=== PATIENT | male | born 1935 | race Caucasian/White ===

== ENCOUNTER → 2018-06-10 10:13 | Outpatient (CLI) | payer MEDICARE, OTHER, SELFPAY ==
[2018-06-10 12:59] LABS: ALB/GLOB Ratio 1.2 RATIO (0.9-2.4); AST(SGOT) 18 U/L (15-37); Alanine Aminotransfer ALT/SGPT 31 U/L (16-61); Albumin, Serum 3.8 g/dL (3.2-5.0); Alkaline Phosphatase 65 U/L (45-117); Anion Gap 7 (5-15); BUN 24 mg/dL (7-18); BUN/Creat Ratio 16.2 RATIO (10-20); Calcium,Total 8.8 mg/dL (8.5-10.1); Chloride 107 mmol/L (98-107); Cholesterol 145 mg/dL (200); Creatinine, Serum 1.48 mg/dL (0.70-1.30); EST Glomerular Filtration Rate 48 mL/min (>60); Est Glom Filt Rate - Afr Amer 58 mL/min (>60); Globulin 3.1 g/dL (2.2-4.2); Glucose 82 mg/dL (74-106); High Density Lipoprotein 44 mg/dL; Potassium 4.3 mmol/L (3.5-5.1); Protein, Total 6.9 g/dL (6.4-8.2); Sodium Level 142 mmol/L (136-145); Triglycerides 228 mg/dL; Very Low Density Lipoprotein 46 mg/dL (5-40)
== END ==
PROVIDERS: Visit Provider Physician Assistant Medical
DX: I25.10 Atherosclerotic heart disease of native coronary artery without angina pectoris (principal); I10 Essential (primary) hypertension; E78.5 Hyperlipidemia, unspecified; Z79.899 Other long term (current) drug therapy
CPT/HCPCS: 80053; 80061

== ENCOUNTER → 2019-06-17 | Outpatient (CLI) | payer MEDICARE, OTHER, SELFPAY ==
[2019-06-17 13:25] VITALS: BMI 29.1
[2019-06-17 16:24] LABS: Absolute Lymphocyte Count 1.06 X10^3/uL (0.83-4.51); Absolute Neutrophil Count 4.6 X10^3/uL (2.0-7.7); Basophil# 0.04 X10^3/uL; Basophil% 0.6 % (0-1); Eosinophil# 0.12 X10^3/uL; Eosinophils% 1.8 % (0-5); Hematocrit 44.9 % (40-54); Hemoglobin 15.7 g/dL (13.0-16.5); Lymphocyte # 1.06 X10^3/ul (4.0); Lymphocyte % 16.1 % (19-41); Mean Corpuscular Hgb 32.4 pg (27.0-32.0); Mean Corpuscular Volume 92.8 fL (80-94); Monocyte# 0.72 X10^3/uL; Monocyte% 10.9 % (0-10); NRBC Flagged by Analyzer 0 % (0-5); Neutrophil # 4.62 X10^3/uL (2.7-7.7); Neutrophil % 70.3 % (47-70); Platelet Count 154 K/mm3 (150-450); RBC Distribution Width CV 12.5 % (11.6-14.6); RBC Distribution Width SD 42.5 fl (35.1-43.9); Red Blood Count 4.84 M/mm3 (4.6-6.2); White Blood Count 6.6 K/mm3 (4.4-11.0)
== END | disposition home or self-care (01) ==
LOC: LAB 14:26
PROVIDERS: Family Provider Family Medicine; PCP Family Medicine; Referring Provider Internal Medicine Cardiovascular Disease; Visit Provider Internal Medicine Cardiovascular Disease
DX: Z95.5 Presence of coronary angioplasty implant and graft (principal)
CPT/HCPCS: 36415; 85025

== ENCOUNTER → 2020-06-21 | Outpatient (CLI) | payer MEDICARE, OTHER, SELFPAY ==
[2020-06-21 11:08] VITALS: BMI 28.5
[2020-06-21 12:35] LABS: Absolute Lymphocyte Count 0.85 X10^3/uL (0.83-4.51); Absolute Neutrophil Count 4.1 X10^3/uL (2.0-7.7); Basophil# 0.03 X10^3/uL; Basophil% 0.5 % (0-1); Eosinophil# 0.11 X10^3/uL; Eosinophils% 1.9 % (0-5); Hematocrit 45.3 % (40-54); Hemoglobin 15.9 g/dL (13.0-16.5); Lymphocyte # 0.85 X10^3/ul (4.0); Lymphocyte % 14.8 % (19-41); Mean Corp Hgb Conc 35.1 g/dL (32-36); Mean Corpuscular Hgb 32.3 pg (27.0-32.0); Mean Corpuscular Volume 92.1 fL (80-94); Mean Platelet Vol. 10.4 fl (6.2-12.0); Monocyte# 0.67 X10^3/uL; Monocyte% 11.6 % (0-10); NRBC Flagged by Analyzer 0 % (0-5); Neutrophil # 4.08 X10^3/uL (2.7-7.7); Neutrophil % 70.9 % (47-70); Platelet Count 142 K/mm3 (150-450); RBC Distribution Width CV 12.4 % (11.6-14.6); RBC Distribution Width SD 41.7 fl (35.1-43.9); Red Blood Count 4.92 M/mm3 (4.6-6.2); White Blood Count 5.8 K/mm3 (4.4-11.0)
[2020-06-21 13:20] LABS: Anion Gap 3 (5-15); BUN 21 mg/dL (7-18); BUN/Creat Ratio 17.4 RATIO (10-20); Calcium,Total 8.9 mg/dL (8.5-10.1); Chloride 110 mmol/L (98-107); Creatinine, Serum 1.21 mg/dL (0.70-1.30); EST Glomerular Filtration Rate 61 mL/min (>60); Est Glom Filt Rate - Afr Amer 73 mL/min (>60); Glucose 83 mg/dL (74-106); Magnesium 2.3 mg/dL (1.6-2.6); Potassium 4.2 mmol/L (3.5-5.1); Sodium Level 143 mmol/L (136-145); T4 Total, Thyroxin 7.1 ug/dL (4.5-12.1); Thyroid Stim Hormone (TSH) 4.36 uIU/mL (0.358-3.74)
== END | disposition home or self-care (01) ==
LOC: LAB 11:45
PROVIDERS: PCP Family Medicine; Referring Provider Internal Medicine Cardiovascular Disease; Visit Provider Internal Medicine Cardiovascular Disease
DX: I25.10 Atherosclerotic heart disease of native coronary artery without angina pectoris (principal); R53.1 Weakness
CPT/HCPCS: 36415; 80048; 83735; 84436; 84443; 85025

== ENCOUNTER → 2020-07-05 | Outpatient (CLI) | payer MEDICARE, OTHER, SELFPAY ==
[2020-06-21 11:08] VITALS: BMI 28.5
--- NOTE | 2020-07-05 07:04 | ECHOCS_ITS ---
Reason For Study: CAD/ASHD Procedure This was a 2D Doppler, Color Flow transthoracic echocardiogram. The study was technically difficult. Contrast injection was performed. Exam performed in department. Left Ventricle Normal LV size. Sigmoid septum. Left ventricular systolic function is normal. The estimated ejection fraction is 65 %. Stage 1 diastolic dysfunction. No regional wall motion abnormalities noted. Right Ventricle Normal RV size. Normal systolic function. Atria Normal left atrium. Normal right atrium. Mitral Valve Mild diffuse mitral valve thickening. Mild (1+) eccentric mitral valve insufficiency. Tricuspid Valve Normal tricuspid valve. Mild tricuspid valve insufficiency. Aortic Valve Trisinus/trileaflet aortic valve. Mild diffuse aortic valve thickening. Mild (1+) eccentric aortic valve insufficiency. Pulmonic Valve Normal pulmonic valve. Great Vessels Normal aortic root. The pulmonary artery is normal size. Normal inferior vena cava. Pericardium/Pleural No pericardial effusion. Medication 22 gauge I.V. with prn adaptor inserted into right arm. Diluted definity 2ml given slow IV push to enhance endocardial definition. MMode/2D Measurements & Calculations LVIDd: 4.8 cm IVSd: 1.5 cm Ao root diam: 3.3 cm LVIDs: 3.3 cm LVPWd: 1.7 cm LA dimension: 3.1 cm FS: 30.8 % LAV(MOD-bp): 44.4 ml LA A4 area: 16.9 cm2 RA A4 area: 14.5 cm2 LAV(MOD-bp) Indexed: 21.5 ml/m2 LAV(MOD-sp2): 47.7 ml LAV(MOD-sp4): 42.2 ml Time Measurements MV dec time: 0.15 sec Doppler Measurements & Calculations MV E max roger: 49.0 cm/sec Lat Peak E' Roger: 4.5 cm/sec Ao V2 max: 98.7 cm/sec MV A max roger: 94.9 cm/sec E/E' lat: 10.9 Ao max P.9 mmHg MV E/A: 0.52 AI max roger: 410.1 cm/sec LV V1 max: 76.5 cm/sec PA V2 max: 71.3 cm/sec AI max P.4 mmHg LV V1 max P.3 mmHg AI dec slope: 170.5 cm/sec2 AI P1/2t: 704.5 msec PI end-d roger: 109.8 cm/sec Interpretation Summary Normal LV size. Sigmoid septum. Left ventricular systolic function is normal. The estimated ejection fraction is 65 %. Stage 1 diastolic dysfunction. Mild (1+) eccentric aortic valve insufficiency. Contrast injection was performed. Ordering Physician: Daljit Sosa Referring Physician: Franky Herrmann Performed By: Marco Smyth RCS
--- NOTE | 2020-07-05 13:03 | STRESSREP ---
Stress Test Report Exercise myocardial perfusion stress test. 84-year-old man with a history of previous inferior wall myocardial infarction. Stress protocol: Resting EKG demonstrates normal sinus rhythm with a rate of 63 bpm right bundle branch block is noted resting blood pressure 142/82 mmHg. The patient exercised according to regular George protocol for a total duration of 4 minutes and 12 seconds. The maximum heart rate attained was 130 bpm which was 95% of max impacted heart rate and maximum workload was 6 metabolic equivalents. At rest there were no ST or T wave changes noted suggest ischemia at peak exercise upsloping ST changes were noted. No meet the criteria for ischemia. No clinical angina was noted the test was terminated due to significant fatigue and dyspnea. Resting blood pressure was 142/82 with a peak blood pressure 190/96 mmHg. Myocardial perfusion protocol. 11.5 mCi of technetium 99m sestamibi was injected at rest. Patient exercised according to regular George protocol for 4 minutes and 12 seconds at peak exercise 36.0 mCi of technetium 99m sestamibi was injected stress images were obtained stress and rest images were reconstructed and compared in the short axis vertical long horizontal long axis. Gated images were also obtained Perfusion SPECT analysis: Review of the stress images demonstrate normal perfusion noted in the anterior wall lateral wall and septum. The mid to basal inferior wall has a medium size defect noted. The resting images demonstrate improvement in this area except for the basal inferior wall suggesting moderate ischemia noted in the mid inferior wall and a previous basal inferior infarct. Gated SPECT analysis: The gated ejection fraction is 69%. Conclusion: Abnormal exercise myocardial perfusion stress test with evidence of mid inferior ischemia. Basal inferior infarct noted. Preserved ejection fraction.
== END | disposition home or self-care (01) ==
LOC: CVS 07:04
PROVIDERS: PCP Family Medicine; Referring Provider Internal Medicine Cardiovascular Disease; Visit Provider Internal Medicine Cardiovascular Disease
DX: I25.10 Atherosclerotic heart disease of native coronary artery without angina pectoris (principal); Z95.5 Presence of coronary angioplasty implant and graft
CPT/HCPCS: 78452; 93017; 93306; A9500; Q9957; A4216; C8929

== ENCOUNTER 2020-07-21 06:43 | Day surgery (SDC) | payer MEDICARE, OTHER, SELFPAY ==
[2020-06-21 11:08] VITALS: BMI 28.5
--- NOTE | 2020-07-12 09:26 | RAD_ITS ---
STUDY: X-RAY CHEST REASON FOR EXAM: Male, 84 years old. CAD, ABN STRESS. NO CHEST COMPLAINTS TECHNIQUE: PA and lateral views of the chest. COMPARISON: None. FINDINGS: The lungs are clear and expanded. There is no demonstrated pleural abnormality. Normal size heart. Normal mediastinum and marco. Normal visualized pulmonary arteries. There is atherosclerotic calcification of the aortic arch with tortuosity. There are diffuse degenerative changes of the visualized thoracic spine. Mild dextroscoliosis. There is degenerative osteoarthritis of the bilateral shoulders. Moderate sized hiatal hernia. RAD/Chest PA and Lateral IMPRESSION: The lungs are clear. Hiatal hernia. Electronically Signed: Kyree Silver, at 12:26 EDT , Service support ,
[2020-07-20 07:46] VITALS: BMI 28.5
[2020-07-21] VITALS (19 sets, daily range): BP systolic 140–205; BP diastolic 58–102; PULSE 60–78; RESP 16–18; TEMP 36.2–37; O2SAT 94–98; BMI 29.5
--- NOTE | 2020-07-21 09:00 | HP_ITS ---
[facility] History of Present Illness Details: CASSIDY BAKER, is a 84 M who presents to the office today for a cardiovascular follow-up. He has a history of coronary artery disease with myocardial infarction in 2004 of his RCA, for which she underwent angioplasty and drug-eluting stent to the proximal right coronary artery and PCI of the mid left anterior descending artery and proximal left anterior descending artery with 2 drug-eluting stents placed. He also has a history of hypertension. He presents today with his daughters and his major complaint is that he is fatigued as well as has had increased sweating. He was taken to [place] and he experienced the same with minimal activity. They want to know whether there is a cardiac explanation to this. From a cardiac standpoint, patient is doing well. He does not have any chest discomfort/heaviness/tightness. His exercise tolerance is stable for his age. He does not have any worsening symptoms of shortness of breath. He denies any PND. He does not have any orthopnea. He does not have any symptoms of congestive heart failure. He does not have any palpitations that he is aware of. He does not have any lightheadedness or dizziness. He does not have any near-syncope or syncope. He does not have any lower extremity edema. He does not have any symptoms of claudication. His physical exam demonstrates clear lung barbour regular rate and rhythm and no pedal edema. Intake Vital Signs 06/21/20 Height 5 ft 10 in 06/21/20 Weight: 199 lb 06/21/20 BMI 28.5 06/21/20 BP 164/91 H 06/21/20 Respiration 16 06/21/20 Pulse 62 06/21/20 Pulse Oximetry (%) 96 Intake Visit Reasons: 1 Y FU, increased fatigue, sweating Allergies donepezil [From Aricept] Adverse Reaction (Verified 06/21/20 11:08) HTN nitroglycerin Adverse Reaction (Verified 06/21/20 11:12) Unknown Medications ibuprofen 200 mg capsule 200 mg PO TID-QID PRN 06/10/18 [History Confirmed 06/21/20] atorvastatin 10 mg tablet 10 mg PO QDAY #90 tab 12/15/18 [Rx Confirmed 06/21/20] metoprolol succinate 50 mg tablet,extended release 24 hr 50 mg PO QDAY #90 tab 09/04/19 [Rx Confirmed 06/21/20] omeprazole 20 mg capsule,delayed release 20 mg PO QDAY #90 cap 01/29/20 [Rx Confirmed 06/21/20] aspirin 81 mg tablet,delayed release 81 mg PO .M/W/F tab 06/21/20 [History Confirmed 06/21/20] betamethasone dipropionate 0.05 % topical cream 1 applic TOPICAL BID g 06/21/20 [History Confirmed 06/21/20] memantine 10 mg tablet 10 mg PO QAM tab 06/21/20 [History Confirmed 06/21/20] multivitamin 1 tab PO DAILY 06/21/20 [History Confirmed 06/21/20] venlafaxine 37.5 mg capsule,extended release 24 hr 37.5 mg PO DAILY cap 06/21/20 [History Confirmed 06/21/20] Ejection fraction %: 50 to 54 PFSH Medical History Atherosclerosis of coronary artery of [place] heart without angina pectoris (Chronic) Old inferior wall myocardial infarction (Chronic) Essential (primary) hypertension (Chronic) Hyperlipidemia (Chronic) Chronic kidney disease (Chronic) Hypothyroidism (Chronic) Obesity (Chronic) Surgical History History of coronary artery stent placement (Resolved 05/19/06) H/O hernia repair (Resolved) History of tonsillectomy (Resolved) Family History Sister , Age 49 Diabetes Social History (Updated 06/21/20 @ 11:[address] Daljit Sosa MD) Smoking Status: Former smoker alcohol intake: never caffeine: Yes Type: coffee Number of servings: 1 ROS Const Const: Positive for fatigue (episodes of fatigue and increase sweating for the past 2 weeks), weakness and excessive sweating; negative for headache(s), frequent falls or difficulty sleeping Eyes Eyes: Negative for loss of peripheral vision, transient loss of vision, blurry vision, double vision or tunnel vision ENT ENT: Negative for headache(s), dizziness, Nosebleed/epistaxis or balance problems Cardio Chest Pain: No Palpitations: No Edema: None Muscle aches with walking: None Resp Respiratory: Negative for SOB with activity, SOB at rest, SOB orthopnea\SOB lying down, Cough or paroxysmal nocturnal dyspnea GI GI: Negative nausea, vomiting, heartburn or black,tarry stools : Negative for hematuria Musc Musc: Negative for muscle aches/ myalgia, muscle weakness, joint pain or balance problems Skin Skin: Negative non-healing lesions, rash or unusual bruising Neuro Neuro: Positive for weakness; negative for dizziness, lightheadedness, near syncope, syncope, orthostatic symptoms, frequent falls, headache(s), blurry vision, double vision or lack of coordination [place] Hematologic/Lymphatic: Negative for easy bleeding or easy bruising Endo Endo: Positive for fatigue (episodes of fatigue and increase sweating for the past 2 weeks) and excessive sweating; negative for increased thirst/drinking Psych Psych: Negative for anxiety or depression Allergy Allergy/Immunology: Negative for hives, Negative for rash Cardiology Exam Const Appearance: cooperative, healthy appearing, no acute distress, well developed and well groomed Nutritional Appearance: average body habitus and well nourished Orientation: alert, awake and oriented x3 Head Head: normal to inspection, normocephalic and atraumatic Ears: hearing grossly normal bilaterally and external ears normal Nose: external nose normal, nares normal, nasal mucous membranes and turbinates normal, septum normal, no nasal discharge Face and Sinus: face symmetric Mouth: oral mucosae normal, tongue normal, oropharynx normal and moist mucous membranes Teeth and gingiva: dentition normal Throat: posterior oropharynx normal, tonsils normal and uvula midline Eyes General: appearance normal, both eyes and all related structures Eyelids: eyelids normal Conjunctivae: conjunctivae normal Pupils: PERRL, normal by confrontation and accommodation normal EOM: EOM intact bilaterally Neck Neck: normal visual inspection, trachea midline and no JVD JVD: +5 Carotids: normal carotid upstroke and bounding pulses Chest Chest inspection: normal inspection of the chest, symmetric chest movement and normal respiratory effort Auscultation: Bilateral: Clear to Auscultation Cardio Palpation: normal PMI Rate: regular rate Rhythm: regular rhythm Heart sounds: S1 normal, S2 normal and normal, physiologic split S2; negative rub, gallop or murmur GI GI: normal to inspection, soft, no hepatosplenomegaly and bowel sounds present Neuro General: alert, awake, oriented x3, gait normal, moves all extremities and no focal sensory deficit Skin Skin: no rashes or lesions noted Extremities Pulses: Normal: Right Femoral Pulse, Left Femoral Pulse, Right Dorsalis Pedis Pulse, Left Dorsalis Pedis Pulse, Right Posterior Tibial Pulse, Left Posterior Tibial Pulse, Right Radial Pulse, Left Radial Pulse Lower Extremity Edema: None: Bilateral Musculoskel Musculoskeletal: No joint tenderness Psych Psychological: normal affect Assessment & Plan 1. History of coronary artery stent placement Z95.5 [id number] RCA w/ Taxus Stent 07/10/2005; PCI-BUSTER-Mid LAD w/ 2.5 x 8 mm Taxus Stent and immediately upstream w/ a 2.5 x 16 mm Taxus 05/19/2006 Plan He does have a history of coronary artery disease status post previous drug- eluting stent angioplasty of the right coronary artery in 2004 and drug-eluting stent of the left anterior descending artery in 2005. His last stress test was in 2013 with his current symptoms which cannot be fit into any particular category I like to obtain a myocardial perfusion stress test on him and depending on the findings further recommendations will be made. Orders Orders: Nuclear Stress Test - Treadmil Today 2. Essential (primary) hypertension I10 Plan He does have a history of hypertension which is not well-controlled on the current medical therapy, and I have asked him to continue to monitor his blood pressures we will see his response to exercise and depending on those tests further recommendations will be made. 3. Pure hypercholesterolemia E78.00 Plan He does have a history of hyperlipidemia and will continue to follow the above. Plan Detail Other Orders Orders: Basic Metabolic Profile (BMP) Today I25.10 Magnesium Today R53.1 T4 Total, Thyroxin Today R53.1 Thyroid Stim Hormone (TSH) Today R53.1 Echo Complete Today I25.10 CBC W/Diff, Automated Today R53.1 Follow Up 2 Months ([facility]) Coding Level of Care Code Off vis,est,level 4 Diagnoses History of coronary artery stent placement Z95.5 Essential (primary) hypertension I10 Pure hypercholesterolemia E78.00 ??Hyperlipidemia type: pure hypercholesterolemia Coding Level of Care Code Off vis,est,level 4 Diagnoses History of coronary artery stent placement Z95.5 Essential (primary) hypertension I10 Pure hypercholesterolemia E78.00 ??Hyperlipidemia type: pure hypercholesterolemia Supplemental Info Supplemental Information Labs LDL Cholesterol 55 mg/dL (0-130) 06/10/18 HDL Cholesterol 44 mg/dL (40-) 06/10/18 Triglycerides 228 mg/dL (-199) H 06/10/18 VLDL Cholesterol 46 mg/dL (5-40) H 06/10/18 Diagnostics Stress Test Nuclear Medicine 10/20/14
--- NOTE | 2020-07-21 09:12 | CL.D_ITS ---
Patient Name: CASSIDY BAKER Study Date: 07/21/2020 Performing: Daljit Sosa MD Ht: 70.07 inches 178 cm : 1935 Wt: 198.42 lbs 90 kg Age: 84 Gender: male BSA: 2.08 PROCEDURE(S) PERFORMED RA33-ITA/COR/LV CLINICAL PROFILE AND INDICATIONS Indications: Suspected CAD Heart Failure: None Stress/Imaging Date: 07/09/2020Stress Test with SPECT MPI: Positive Intermediate Risk CAD Presentations: Stable angina. CONCLUSIONS Severe disease involving the right coronary artery which is totally occluded and the left anterior de scending artery previously stented with 60% in-stent stenosis and 70 to 80% stenosis proximal to the previous stent and a first diagonal vessel with 80% stenosis noted RECOMMENDATIONS Referred for immediate PCI DESCRIPTION OF PROCEDURE The patient arrived to the procedure lab. The risks and benefits of the procedure as well as a full d escription of our services here and current unavailability of surgical backup were fully explained to the patient and/or their significant other prior to the catheterization. The Timeout was completed, verifying the correct patient and procedure. The patient's procedural site was prepped and draped in the usual fashion. Local anesthetic was given subcutaneously to right radial region with Lidocaine 2% . Using a modified Seldinger technique, arterial access was obtained via the right radial artery, a 6 Fr sheath was inserted. Left Coronary Artery selective angiography was performed in multiple views u sing a 5 Fr. 4.0 [place] catheter. Right Coronary Artery selective angiography was then performed in mu ltiple views using a 5 Fr. 4.0 [place] catheter. Left Coronary Artery selective angiography was perform ed in multiple views using a 6 Fr. JL4 catheter. Left Ventriculography was performed in [place] projection using a 6 Fr. Pigtail catheter. LV to AO pullback pressures were then recorded. CORONARY ANGIOGRAPHY DOMINANCE: Right Dominant LEFT HEART ASSESSMENT Left Ventricular Ejection Fraction: by LV Gram 60 % Normal LV wall motion. Normal LV wall motion. Normal LV wall motion Normal Left Ventricular systolic function LEFT MAIN: Mild calcification, Mild luminal irregularities LEFT ANTERIOR DESCENDING ARTERY: PROX LAD: 80 % Stenosis MID LAD: Instent restenosis 60 % DIAGONAL 1: Proximal - 70 % Stenosis CIRCUMFLEX ARTERY: Mild luminal irregularities RIGHT CORONARY ARTERY: PROX RCA: is occluded COLLATERAL FLOW: Collateral flow from Left to Right COMPLICATIONS PROCEDURE MEDICATIONS Fentanyl 50 mcg IV Versed 1 mg IV Baby Aspirin (81mg) 1 Tabs PO @ 07/21/2020 06:59:02 Heparin diluted in 23cc Heparinized saline. Patient given 10cc IA of this solution. 07/21/2020 07:47:3 2 Heparin diluted in 23cc Heparinized saline. Patient given 10cc IA of this solution. 07/21/2020 07:47:3 2 Heparin 6000 unit(s) IV 07/21/2020 09:02:07 Verapamil 2.5mg, 2000 units of Heparin diluted in 23cc Heparinized saline. Patient given 10cc IA of this solution. 07/21/2020 07:47:32 SUMMARY OF HEMODYNAMIC DATA Time AIR REST ECG 07:02:37 AO 168/88 (117) SA 07:50:27 AO 145/90 (100) 08:39:34 AO 142/92 (110) 08:39:39 AO 182/96 (129) 08:40:19 LV 168/13, 20 08:47:58 LV 170/12, 20 08:48:05 LV 166/16, 23 08:48:46 LV 172/17, 24 08:48:52 LVp 178/21, 26 08:48:59 AOp 179/93 (128) 08:49:04 Signed By Daljit Sosa MD On 07/21/2020 09:11:09 Daljit Sosa MD
[2020-07-21 09:46] LABS: ACT Activated Clotting Time 268 sec (74-137)
--- NOTE | 2020-07-21 10:00 | EKG12_ITS ---
Test Reason : AM EKG Blood Pressure : / mmHG Vent. Rate : 067 BPM Atrial Rate : 067 BPM P-R Int : 270 ms QRS Dur : 150 ms QT Int : 474 ms P-R-T Axes : 041 -79 -12 degrees QTc Int : 500 ms Sinus rhythm with 1st degree A-V block Low Voltage QRS (Limb Leads) Right bundle branch block Left anterior fascicular block Bifascicular block Inferior infarct Age undetermined Abnormal ECG Confirmed by ESSENCE FIORE, MARIXA ([id number]), image editor ZAYDA SIMMONS ([id number]) on 07/28/2020 9:55:08 AM Referred By: Daljit Sosa Confirmed By:MARIXA LOWRY MD
--- NOTE | 2020-07-21 10:20 | CL.I_ITS ---
Patient Name: CASSIDY BAKER Study Date: 07/21/2020 Performing: Joaquina Perez MD Ht: 70 inches 178 cm : 1935 Wt: 198.7 lbs 90 kg Age: 84 Gender: male BSA: 2.08 PROCEDURE(S) PERFORMED [id number] W OR WO PTCA, SINGLE CORONARY ARTERY [id number] W OR WO PTCA, EACH ADD'L ARTERY, SAME MAJOR CLINICAL PROFILE AND CO-MORBIDITIES Indications: Suspected CAD Heart Failure: None Stress/Imaging Date: 07/09/2020 Stress Test with SPECT MPI: Positive Intermediate Risk CAD Presentations: Stable angina. CONCLUSIONS Successful PTCA/BUSTER to LAD/D1 with BUSTER to both LAD and ostial D1 (Y stent) RECOMMENDATIONS ASA Rosaefteagan Lawson for at least 12 months Follow up with Dr. Sosa DESCRIPTION OF PROCEDURE The patient arrived to the procedure lab. The risks and benefits of the procedure as well as a full d escription of our services here and current unavailability of surgical backup were fully explained to the patient and/or their significant other prior to the catheterization. The Timeout was completed, verifying the correct patient and procedure. The patient's procedural site was prepped and draped in the usual fashion. Local anesthetic was given subcutaneously to right radial region with Lidocaine 2% Using a modified Seldinger technique,arterial access was obtained via the right radial artery, a 6Fr sheath was inserted. Left Coronary Artery selective angiography was performed in multiple views usin g a 5 Fr. 4.0 [place] catheter. Right Coronary Artery selective angiography was then performed in multi ple views using a 5 Fr. 4.0 [place] catheter. Left Coronary Artery selective angiography was performed in multiple views using a 6 Fr. JL4 catheter. Left Ventriculography was performed in [place] projection using a 6 Fr. Pigtail catheter. LV to AO pullback pressures were then recorded.The images were reviewed and options discussed. A decision was then made to proceed with an Intervention, IVUS o r other adjunct procedure. XB 3.0 Guide catheter was inserted and engaged into the LCA. BMW Ararat Guide wire was advance d to the 1st Diagonal. Runthrough Guide wire was advanced to the LAD. Euphora 2.25 x [address] was inserted. Balloon catheter was advanced across lesion in the first diagonal, ostial. PTCA bal loon inflated at 12 atms for 39 secs. Balloon catheter was repositioned to additional lesion in the L AD, proximal. PTCA balloon inflated at 12 atms for 45 secs. Synergy 2.75 x 20 Drug Eluting stent was inserted. Drug Eluting stent was advanced across the lesion in the LAD, proximal. Euphora 2.0 x 15 Ba lloon catheter was inserted. Balloon catheter was advanced across lesion in the first diagonal, ostia l. PTCA balloon inflated at 12 atms for 21 secs. NC Emerge 2.75 x 15 Balloon catheter was inserted. B alloon catheter was advanced across lesion in the LAD, proximal. Synergy 2.25 x 8 Drug Eluting stent was inserted. Drug Eluting stent was advanced across the lesion in the first diagonal, ostial. The arterial sheath was pulled and a TR Band was applied for hemostasis INTERVENTION INFORMATION LESION SITE: 1st Diagonal (Ostial) Lesion Complexity: High/C, chronic total occlusion: No, lesion at bifurcation: Yes, thrombus present: No, lesion length: 8 mm, culprit lesion: Yes, Previously treated lesion: No Pre Stenosis: 95 % Pre intervention ROSALBA flow: 3 PROCEDURE: Drug Eluting Stent with pre dilatation. Post Stenosis: 0 % Post intervention ROSALBA flow: 3 Lesion Devices: Cardinal 6 Fr XB3.0 100cm Guide Catheter [place] .014 BMW Ararat Straight 190cm Terumo .014 Runthrough Extra Floppy 180cm straight Medtronic SC EUPHORA RX 2.25x15 BALLOON Medtronic SC EUPHORA RX 2.0x15 BALLOON [employer] Synergy MR BUSTER 2.25x08 LESION SITE: LAD (Proximal) Lesion Complexity: High/C, chronic total occlusion: No, lesion at bifurcation: Yes, thrombus present: No, lesion length: 18 mm, culprit lesion: Yes, Previously treated lesion: No Pre Stenosis: 80 % Pre intervention ROSALBA flow: 3 PROCEDURE: Drug Eluting Stent with pre and post dilatation Post Stenosis: 0 % Post intervention ROSALBA flow: 3 Lesion Devices: Cardinal 6 Fr XB3.0 100cm Guide Catheter Mckay .014 BMW [place] Straight 190cm Terumo .014 Runthrough Extra Floppy 180cm straight Medtronic SC EUPHORA RX 2.25x15 BALLOON [employer] Synergy MR BUSTER 2.75x20 [employer] NC EMERGE MR 2.75x15 BALLOON COMPLICATIONS No Complications PROCEDURE MEDICATIONS Fentanyl 50 mcg IV Versed 1 mg IV Baby Aspirin (81mg) 1 Tabs PO 07/21/2020 06:59:02 Brilinta 180 mg PO @ 07/21/2020 09:40:28 Heparin diluted in 23cc Heparinized saline. Patient given 10cc IA of this solution. 07/21/2020 07:47:3 2 Heparin diluted in 23cc Heparinized saline. Patient given 10cc IA of this solution. 07/21/2020 07:47:3 2 Heparin 6000 unit(s) IV 07/21/2020 09:02:07 Verapamil 2.5mg, 2000 units of Heparin diluted in 23cc Heparinized saline. Patient given 10cc IA of this solution. 07/21/2020 07:47:32 IV Bolus: .9 NaCl 450 ml total 07/21/2020 09:45:51 SUMMARY OF HEMODYNAMIC DATA Time AIR REST ECG 07:02:37 AO 168/88 (117) SA 07:50:27 AO 145/90 (100) 08:39:34 AO 142/92 (110) 08:39:39 AO 182/96 (129) 08:40:19 LV 168/13, 20 08:47:58 LV 170/12, 20 08:48:05 LV 166/16, 23 08:48:46 LV 172/17, 24 08:48:52 LVp 178/21, 26 08:48:59 AOp 179/93 (128) 08:49:04 Signed By Joaquina Perez MD On 07/21/2020 10:19:57 Joaquina Perez MD
[2020-07-21] MEDS: 0.9% Normal Saline 1,000 ML 60 ML IV (10:48)
[2020-07-21 10:56] LABS: Hematocrit 46.5 % (40-54); Hemoglobin 15.8 g/dL (13.0-16.5); Mean Corpuscular Hgb 31.2 pg (27.0-32.0); Mean Corpuscular Volume 91.7 fL (80-94); Mean Platelet Vol. 10.3 fl (6.2-12.0); Platelet Count 148 K/mm3 (150-450); RBC Distribution Width CV 12.2 % (11.6-14.6); RBC Distribution Width SD 41.4 fl (35.1-43.9); Red Blood Count 5.07 M/mm3 (4.6-6.2); White Blood Count 6.2 K/mm3 (4.4-11.0)
[2020-07-21] MEDS: hydrALAZINE 20 MG/ML Vial 5 MG IV (13:40)
--- NOTE | 2020-07-21 13:55 | CRPHASE1 ---
Patient Communication Former Patient:: Phase I PHII Cardiac Rehab Discussed with Patient:: Yes Guide to Cardiac Rehab Given to Patient:: Yes Cardiac Rehab Facility Choice List Given to Patient:: Yes Choice Program [facility] CR PHII:: Communication Given to CR Refer Phase II Cardiac Rehab:: Yes Sessions:: 36 sessions - 3 days/wk, 12 weeks Risk Factors/Lifestyle Smoking Status: Never smoker Second-Hand Smoke:: No Hx Hypertension: Yes Hx Diabetes Mellitus Type 1: No Hx Diabetes Mellitus Type 2: No Hx Metabolic Disorders: No Hx Dyslipidemia: Yes Hx Obesity: Yes Post-Menopausal: No Stress: Recent ETOH: No Caffeine: No Substance Abuse: No Risk Factor for Sedentary Lifestyle: Highest Risk Family History: Family History (Last Reviewed 06/21/20 @ 11:[address] Daljit Sosa MD) Sister Diabetes Phase I Education Given On:: [place], Antiplatelet medication Issues Affecting Care:: Cognitive Knowledge of Condition:: No Learning Preferences: Verbal, Demonstration Cardiac Rehabilitation Info Cardiac Rehabilitation Program Information: Cardiac Rehabilitation is important for patients like you who are recovering from a heart problem. Cardiac rehabilitation programs are recognized as integral to the continued care of the patient with coronary heart disease. The cardiac rehabilitation program is designed to optimize a patient's physical, psychological, and social functioning. Health lpn care manager work in cardiac rehabilitation programs and assist you with getting the treatments you need to get stronger and healthier - like exercise, healthy eating habits, and medications. Cardiac rehabilitation has been show to help people with heart problems live longer and have better life enjoyment than people who do not go to cardiac rehabilitation. Please contact the Cardiac Rehabilitation Program at [facility] at in two weeks if you have not heard from them.
--- NOTE | 2020-07-21 13:56 | CRPH1.INSTRU ---
General Education CAD and cardiac anatomy and function:: Patient communicates acknowledgment Explanation of diagnoses and procedures:: Patient communicates acknowledgment Sign/Symptoms of [place]:: Patient communicates acknowledgment Antiplatelet therapy: Patient communicates acknowledgment Proper use of NTG-SL: Patient communicates acknowledgment Emergency procedures and activation of EMS: Patient communicates acknowledgment Compliance of all prescribed medications: Patient communicates acknowledgment Smoking Patient Nicotine/Smoking Risk Factors Are:: Never smoked Dyslipidemia Patient Dyslipidemia Risk Factors Are:: Total Cholesterol, Triglycerides, HDL, LDL Recommendations Include:: Lipid profile provided, Reviewed NCEP/ATP guidelines, Therapeutic Lifestyle Change dietary guidelines Dyslipidemia Response Code:: Patient communicates acknowledgment Overweight/Obesity Patient Overweight/Obesity Risk Factors Are:: BMI Normal [24-29 & > 65 years old] Recommendations Include:: Weight loss of 5-10%, Reduced calorie diet, Exercise 5-7 times/week Overweight/Obesity:: Patient communicates acknowledgment Hypertension Recommendations Include:: Maintain BP <130/85, DASH dietary guidelines, Decrease/maintain normal body weight, Moderation of ETOH Hypertension:: Patient communicates acknowledgment Sedentary Patient Sedentary Risk Factors Are:: Lack of regular exercise Recommendations Include:: Aerobic exercise 5-7 times/week for 20-30 minutes continuously, Benefits of regular exercise, Discussed home walking program, Monitored Outpatient Cardiac Rehab Sedentary Response Code:: Patient communicates acknowledgment Stress Patient Stress Risk Factors Are:: Patient denies stress as a risk factor Recommendations Include:: Identification of stressors, and assessment of coping skills, Stress management techniques Stress Response Code:: Patient communicates acknowledgment
--- NOTE | 2020-07-21 17:30 | NURSING ---
TR band removed at this time. No bleeding or oozing. Opsite dressing applied over gauze. Arm board utilized to protect wrist from accidental movement.
[2020-07-21] MEDS: TICAGRELOR 90 MG TABLET PO (22:26)
[2020-07-21] MEDS: Venlafaxine XR 37.5 MG Capsule PO (22:26)
[2020-07-21] MEDS: Memantine Hydrochloride 10 MG Tablet PO (22:27)
[2020-07-21] MEDS: Triamcinolone 0.5% Cream 1 APPLIC TOPICAL (22:27)
[2020-07-21] MEDS: Atorvastatin Calcium 10 MG Tablet PO (22:27)
[2020-07-22 01:56] LABS: Bedside Glucose 111 mg/dL (70-110)
[2020-07-22 03:00] VITALS: PULSE 67
[2020-07-22 04:02] VITALS: BP 137/72; PULSE 65; RESP 15; TEMP 36.9; O2SAT 97
[2020-07-22 06:22] LABS: Hematocrit 45.8 % (40-54); Hemoglobin 15.9 g/dL (13.0-16.5); Mean Corp Hgb Conc 34.7 g/dL (32-36); Mean Corpuscular Hgb 31.7 pg (27.0-32.0); Mean Corpuscular Volume 91.4 fL (80-94); Mean Platelet Vol. 9.9 fl (6.2-12.0); Platelet Count 149 K/mm3 (150-450); RBC Distribution Width CV 12.2 % (11.6-14.6); RBC Distribution Width SD 40.7 fl (35.1-43.9); Red Blood Count 5.01 M/mm3 (4.6-6.2); White Blood Count 8.1 K/mm3 (4.4-11.0)
[2020-07-22 06:48] VITALS: O2SAT 96
[2020-07-22 06:50] LABS: ALB/GLOB Ratio 1.2 RATIO (0.9-2.4); AST(SGOT) 19 U/L (15-37); Alanine Aminotransfer ALT/SGPT 19 U/L (16-61); Albumin, Serum 3.5 g/dL (3.2-5.0); Alkaline Phosphatase 76 U/L (45-117); Anion Gap 6 (5-15); BUN 16 mg/dL (7-18); BUN/Creat Ratio 13.8 RATIO (10-20); Calcium,Total 8.6 mg/dL (8.5-10.1); Chloride 108 mmol/L (98-107); Creatinine, Serum 1.16 mg/dL (0.70-1.30); EST Glomerular Filtration Rate 64 mL/min (>60); Est Glom Filt Rate - Afr Amer 77 mL/min (>60); Globulin 2.9 g/dL (2.2-4.2); Glucose 107 mg/dL (74-106); Potassium 3.8 mmol/L (3.5-5.1); Protein, Total 6.4 g/dL (6.4-8.2); Sodium Level 141 mmol/L (136-145)
[2020-07-22 06:57] VITALS: PULSE 67
--- NOTE | 2020-07-22 08:38 | PCM.DC.CCA ---
Discharge Diet: Low fat/ Low Cholesterol Discharge Activity: Return to Normal Activity May shower in (days): 1 Lifting Restrictions: 10 pounds and also avoid any pushing or pulling for 3 days after your test. Call your doctor if your incision/area has: Continuous Slow Oozing, Sudden Increased Bleeding, Increased Pain/ Swelling, Increased Redness, Foul Smelling Discharge, Swelling at the incision site Call your doctor if you observe: Shortness of breath, Chest pain Remove Dressing in (days):: 1 Additional Dressing/Incision Instructions:: Keep the dressing (bandage) on until the next morning. You may then shower, but do not take a tub bath for 5 days after your test. It is normal to have some tenderness and discomfort at the puncture site. Sometimes bruising also occurs. However, if pain, numbness, or coldness occurs below the puncture site (in your leg, toes, arms or fingers) call your doctor at once. You may have a small, marble sized knot at the puncture site. This is normal. Do not rub it. It will go away in 4-6 weeks. Bleeding can occur from the area where the puncture was done. Blood may spurt or drip from the site. If blood spurts, apply pressure right away to stop bleeding and call 911. Although rare, bleeding into the tissue (hematoma) can also occur. If this happens, a large, firm area goose egg under the skin will appear. If any of these occur, lie down as flat as you can and have someone apply firm pressure to the cath site with a gauze pad or a clean washcloth for 10-15 minutes. Call 911 or go to the Emergency Department. Additional Instructions: You were started on Brilinta, this will help keep your stent open. You can not stop this for at least 1 year. A prescription was sent to [email or web address]. A follow appt was made for you at the [facility]. At that appt we can further discuss cardiac rehab. Allergies/Adverse Reactions: Allergies donepezil [From Aricept] Adverse Reaction (Verified 06/21/20 11:08) HTN nitroglycerin Adverse Reaction (Verified 06/21/20 11:12) Unknown Medications to take at Discharge ibuprofen 200 mg capsule 200 mg PO TID-QID PRN 06/10/18 atorvastatin 10 mg tablet 10 mg PO QDAY #90 tab 12/15/18 metoprolol succinate 50 mg tablet,extended release 24 hr 50 mg PO QDAY #90 tab 09/04/19 omeprazole 20 mg capsule,delayed release 20 mg PO QDAY #90 cap 01/29/20 aspirin 81 mg tablet,delayed release 81 mg PO .M/W/F tab 06/21/20 betamethasone dipropionate 0.05 % topical cream 1 applic TOPICAL BID g 06/21/20 memantine 10 mg tablet 10 mg PO BID tab 06/21/20 multivitamin 1 tab PO DAILY 06/21/20 venlafaxine 37.5 mg capsule,extended release 24 hr 37.5 mg PO DAILY cap 06/21/20 Aspirin [Aspirin, Baby] 81 mg PO DAILY@0800 tab.chew 07/22/20 ticagrelor 90 mg tablet 90 mg PO BID #60 tab 07/22/20 The following prescriptions were given: Ticagrelor [Brilinta] 90 mg PO BID #60 tab Transmission Status: Pending to [facility] Primary Care Physician: Franky Herrmann MD [Primary Care Provider] - Please follow up with your Primary Care Physician in: 4 weeks Test Results: Test results from this visit will be discussed in further detail at your follow-up appointment, if applicable. Please Follow Up With: Belinda Saab PA When: 08/10/2020 at 0930 Proposed Discharge Date: 07/22/20 Cardiac Rehabilitation Info Cardiac Rehabilitation Program Information: Cardiac Rehabilitation is important for patients like you who are recovering from a heart problem. Cardiac rehabilitation programs are recognized as integral to the continued care of the patient with coronary heart disease. The cardiac rehabilitation program is designed to optimize a patient's physical, psychological, and social functioning. Health adult day care worker work in cardiac rehabilitation programs and assist you with getting the treatments you need to get stronger and healthier - like exercise, healthy eating habits, and medications. Cardiac rehabilitation has been show to help people with heart problems live longer and have better life enjoyment than people who do not go to cardiac rehabilitation. Please contact the Cardiac Rehabilitation Program at [facility] at in two weeks if you have not heard from them.
[2020-07-22 09:20] VITALS: BP 149/84; PULSE 75; RESP 18; TEMP 36.3; O2SAT 96
--- NOTE | 2020-07-22 09:20 | PCM.PN.CARD ---
Subjectve: Patient seen and evaluated. Appears to be doing well. Objective: Vital Signs Temp Pulse Resp BP Pulse Ox 98.4 F 67 15 137/72 H 96 07/22/20 04:02 07/22/20 06:57 07/22/20 04:02 07/22/20 04:02 07/22/20 06:48 Oxygen Delivery Method Room Air Weight: 200 lb Body Mass Index (BMI) 29.5 Intake and Output for Last 24 Hours 07/20/20 07/21/20 07/22/20 23:59 23:59 23:59 Intake Total 1003.2 / 1483.2 720 / 720 Output Total 1320 / 1320 Balance -316.8 / 163.2 720 / 720 General: Awake, Alert, Oriented x 3 HEENT: PERRL, EOMI, Sclera Non Icteric Neck: Supple, Good ROM, No Lymph Node Enlargement Lungs: Clear to auscultation Cardiovascular: Regular Rhythm, Normal S1, Normal S2, No Murmurs, No Rubs, No Gallops Vascular: No Carotid Bruits, Normal Femoral Pulses, Normal Radial Pulses, Normal Dorsalis Pedal Pulse, Normal Posterior Tibial Pulses Abdomen: Bowel Sounds Present, Soft, Non Tender, No HSM, No Organomegaly Extremities: No Cyanosis, No Clubbing, No edema Neurological: No Focal Motor or Sensory Deficit 07/21/20 10:40: WBC 6.2, RBC 5.07, Hgb 15.8, Hct 46.5, MCV 91.7, MCH 31.2, MCHC 34.0, Plt Count 148 L, MPV 10.3 07/22/20 05:58: WBC 8.1, RBC 5.01, Hgb 15.9, Hct 45.8, MCV 91.4, MCH 31.7, MCHC 34.7, Plt Count 149 L, MPV 9.9 07/22/20 05:58: Sodium 141, Potassium 3.8, Chloride 108 H, Carbon Dioxide 27.0, Anion Gap 6, BUN 16, Creatinine 1.16, Est GFR (MDRD) Af Amer 77, Est GFR (MDRD) Non-Af 64, BUN/Creatinine Ratio 13.8, Glucose 107 H, Calcium 8.6, Total Bilirubin 1.00 Rhythm: EKG: ECHO: Stress Test: Cardiac Cath: PCI: CT Surgery: Holter monitor: EPS: PPM: CXR: Chest CT Scan: Medical Necessity - Tobacco Use Smoking Status: Never smoker Assessment/Plan 1. 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 Patient did well overnight. No complications noted. Patient will be discharged for outpatient follow-up.
[2020-07-22 09:23] VITALS: PULSE 75
[2020-07-22] MEDS: Metoprolol(XL)Succ 50 MG Tablet PO (09:23)
[2020-07-22] MEDS: TICAGRELOR 90 MG TABLET PO (09:23)
[2020-07-22] MEDS: Triamcinolone 0.5% Cream 1 APPLIC TOPICAL (09:23)
[2020-07-22] MEDS: Memantine Hydrochloride 10 MG Tablet PO (09:23)
[2020-07-22] MEDS: Multivitamins,Therapeutic Tablet 1 TABLET PO (09:23)
[2020-07-22] MEDS: Pantoprazole Sodium 20 MG Tablet PO (09:23)
[2020-07-22] MEDS: Aspirin 81 MG TAB.CHEW PO (09:23)
== END 2020-07-22 09:21 | disposition home or self-care (01) ==
LOC: CLSP 06:44 → PCU 07-22 07:07
PROVIDERS: Specialist; PCP Family Medicine; Referring Provider Internal Medicine Cardiovascular Disease; Visit Provider Internal Medicine Cardiovascular Disease
DX: I25.119 Atherosclerotic heart disease of native coronary artery with unspecified angina pectoris (principal); I25.2 Old myocardial infarction; E78.5 Hyperlipidemia, unspecified; E03.9 Hypothyroidism, unspecified; E66.9 Obesity, unspecified; I12.9 Hypertensive chronic kidney disease with stage 1 through stage 4 chronic kidney disease, or unspecified chronic kidney disease; N18.9 Chronic kidney disease, unspecified; Z68.28 Body mass index [BMI] 28.0-28.9, adult; Z95.5 Presence of coronary angioplasty implant and graft; Z79.82 Long term (current) use of aspirin; Z79.899 Other long term (current) drug therapy; Z87.891 Personal history of nicotine dependence
CPT/HCPCS: 36415; 71046; 80053; 82962; 85027; 85347; 92928; 92929; 93005; 93458; 99152; 99153; J7030; J7040; Q9967; C1725; C1769; C1874; C1887; C1894; C9600; C9601; J1327

== ENCOUNTER → 2021-06-01 09:38 | Outpatient (CLI) | payer MEDICARE, OTHER, SELFPAY ==
[2020-12-14 10:23] VITALS: BMI 28.8
[2021-06-01 10:04] LABS: Hematocrit 43.3 % (40-54); Hemoglobin 14.9 g/dL (13.0-16.5); Mean Corp Hgb Conc 34.4 g/dL (32-36); Mean Corpuscular Hgb 31.7 pg (27.0-32.0); Mean Corpuscular Volume 92.1 fL (80-94); Mean Platelet Vol. 10.5 fl (6.2-12.0); Platelet Count 178 K/mm3 (150-450); RBC Distribution Width CV 12.1 % (11.6-14.6); RBC Distribution Width SD 41.2 fl (35.1-43.9); White Blood Count 8.6 K/mm3 (4.4-11.0)
[2021-06-01 10:51] LABS: Anion Gap 7 (5-15); BUN 27 mg/dL (7-18); BUN/Creat Ratio 17.5 RATIO (10-20); Calcium,Total 8.7 mg/dL (8.5-10.1); Chloride 106 mmol/L (98-107); Creatinine, Serum 1.54 mg/dL (0.70-1.30); EST Glomerular Filtration Rate 46 mL/min (>60); Est Glom Filt Rate - Afr Amer 55 mL/min (>60); Glucose 101 mg/dL (74-106); Potassium 3.9 mmol/L (3.5-5.1); Sodium Level 141 mmol/L (136-145)
== END ==
PROVIDERS: PCP Family Medicine; Referring Provider Internal Medicine Cardiovascular Disease; Visit Provider Internal Medicine Cardiovascular Disease
DX: I25.10 Atherosclerotic heart disease of native coronary artery without angina pectoris (principal); R06.02 Shortness of breath; R53.1 Weakness
CPT/HCPCS: 36415; 80048; 83880; 85027

== ENCOUNTER → 2021-06-14 07:46 | Outpatient (CLI) | payer MEDICARE, OTHER, SELFPAY ==
[2021-06-02 13:13] VITALS: BMI 28.8
--- NOTE | 2021-06-14 12:53 | STRESSREP ---
Stress Test Report Exercise myocardial perfusion stress test. 85-year-old man with a history of chest pain. Stress protocol: Resting EKG demonstrates normal sinus rhythm with a right bundle branch block rate of 62 bpm is noted. Resting blood pressure is 132/90 mmHg. The patient exercised according to regular George protocol for a total duration of 3 minutes and 23 seconds. The maximum heart rate attained was 110 bpm which was 81% of maximum predicted heart rate the maximum workload was 5 metabolic equivalents. At rest there were no ST or T wave changes noted to suggest ischemia and at peak exercise upsloping ST changes were noted with did not meet the criteria for ischemia. No clinical angina was noted. Myocardial perfusion protocol. 10.4 mCi of technetium 99m sestamibi was injected at rest. The patient exercised according to regular George protocol for 3 minutes and 23 seconds and at peak exercise 35.0 mCi of technetium 99m sestamibi was injected stress images were obtained stress images were reconstructed and compared in the short axis vertical long and horizontal long axis. Gated images were also obtained. Perfusion SPECT analysis: Review of the stress images demonstrate normal uptake of tracer noted in all areas of the myocardium. The resting images similarly demonstrate normal uptake of tracer noted in all areas of the myocardium. No areas of reversibility are noted to suggest ischemia no previous infarct is noted. Gated SPECT analysis: The gated ejection fraction is 68%. Conclusion: Normal exercise myocardial perfusion stress test at a low workload. Preserved ejection fraction.
== END ==
PROVIDERS: PCP Family Medicine; Referring Provider Internal Medicine Cardiovascular Disease; Visit Provider Internal Medicine Cardiovascular Disease
DX: I25.10 Atherosclerotic heart disease of native coronary artery without angina pectoris (principal); R06.02 Shortness of breath; R06.09 Other forms of dyspnea; R53.83 Other fatigue
CPT/HCPCS: 78452; 93017; A9500; A4216

== ENCOUNTER 2023-01-11 18:29 | Emergency (ER) | payer MEDICARE, OTHER, SELFPAY ==
[2023-01-11 18:33] VITALS: BP 219/107; PULSE 73; RESP 22; TEMP 36.8; O2SAT 93; BMI 33.4
--- NOTE | 2023-01-11 18:41 | CT_ITS ---
We are attempting to reach an attending provider to discuss findings. An addendum with communication details will be sent when the communication is complete. STUDY: CT BRAIN WITHOUT CONTRAST REASON FOR EXAM: Male, 87 years old. Trauma RADIATION DOSAGE (If Supplied By Facility): CTDIvol = ( 44.99 ) mGy, DLP = ( 947.97 ) mGycm TECHNIQUE: Transaxial CT imaging of the brain was performed without administration of intravenous contrast material. Individualized dose optimization techniques were used for this CT. COMPARISON: No relevant priors. FINDINGS: There is a large scalp hematoma on the left overlying the frontal bone without evidence for skull fracture. Calcific plaquing of the cavernous carotids There is a large acute/subacute subdural hematoma on the left with maximum width of approximately 3.75 cm effacing the cortical sulci and producing midline shift of approximately 7 mm with entrapment and mild dilatation of the right lateral ventricle. There also appears to be a small left frontal lobe parenchymal hematoma There is effacement of the left perimesencephalic cistern consistent with brainstem compression . Normal basal ganglia and thalami. Normal cerebellum. . There are no findings of an acute ischemic infarction. Diffuse opacification of left frontal ethmoid and maxillary sinuses CT/Brain/Head without Contrast IMPRESSION: Large mixed anomaly acute/subacute left subdural hematoma creating midline shift of approximately 7 mm resulting in entrapment and mild dilatation of the right lateral ventricle as well as effacement of the left perimesencephalic cistern consistent with brainstem compression. There also appears to be a small left frontal lobe parenchymal hematoma Electronically Signed: Alex Delgado MD at 19:18 EST ,
--- NOTE | 2023-01-11 18:41 | CT_ITS ---
STUDY: CT CERVICAL SPINE WITHOUT CONTRAST REASON FOR EXAM: Male, 87 years old. Trauma RADIATION DOSAGE (If Supplied By Facility): CTDIvol = ( 27.45 ) mGy, DLP = ( 639.21 ) mGycm TECHNIQUE: High resolution transaxial imaging was performed without contrast material. Sagittal and coronal images were reconstructed. Individualized dose optimization techniques were used for this CT. COMPARISON: None FINDINGS: Normal craniovertebral junction. Normal anterior atlantoaxial articulation. Normal odontoid process. Normal cervical lordosis. Normal vertebral bodies and posterior osseous elements. C2-3: Anterior endplate spurring.. Normal disc height and morphology. Normal central canal and intervertebral neuroforamina. C3-4: Narrowed disc space and endplate spurring.. Normal central canal. Mild left neural foraminal encroachment secondary to bony hypertrophy C4-5: Narrowed disc space and endplate spurring. Normal central canal and intervertebral neuroforamina. C5-6: Narrowed disc space and endplate spurring with central osteophyte protrusion narrowing the spinal canal and compressing the cord. Mild bilateral neural foraminal encroachment secondary to bony hypertrophy. C6-7: Narrowed disc space and mild endplate spurring.. Normal central canal and intervertebral neuroforamina. C7-T1: Normal endplates. Normal disc height and morphology. Normal central canal and intervertebral neuroforamina. Multifocal ossification of the nuchal ligament.. CT/Spine Cervical without Contras IMPRESSION: Moderate spondylosis most severe at C5-6.. No evidence for acute fracture or subluxation Electronically Signed: Alex Delgado MD at 19:21 EST ,
[2023-01-11 18:46] VITALS: O2SAT 100
[2023-01-11] MEDS: Etomidate 20 MG/10 ML Vial IV (18:48)
[2023-01-11 18:50] VITALS: RESP 14; RESP 20
[2023-01-11] MEDS: Midazolam 2 MG/2 ML Syringe IV (18:53)
[2023-01-11 18:56] LABS: Absolute Neutrophil Count 15.1 X10^3/uL (2.0-7.7); Basophil# 0.07 X10^3/uL; Basophil% 0.4 % (0-1); Eosinophil# 0.17 X10^3/uL; Eosinophils% 0.9 % (0-5); Hematocrit 43.6 % (40-54); Hemoglobin 15.3 g/dL (13.0-16.5); Lymphocyte % 10.9 % (19-41); Mean Corp Hgb Conc 35.1 g/dL (32-36); Mean Corpuscular Hgb 31.5 pg (27.0-32.0); Mean Corpuscular Volume 89.7 fL (80-94); Mean Platelet Vol. 10.2 fl (6.2-12.0); Monocyte# 1.65 X10^3/uL; Monocyte% 8.5 % (0-10); NRBC Flagged by Analyzer 0 % (0-5); Neutrophil # 15.13 X10^3/uL (2.7-7.7); Neutrophil % 78.1 % (47-70); POSITIVE DIFFERENTIAL YES; Platelet Count 203 K/mm3 (150-450); RBC Distribution Width CV 12.5 % (11.6-14.6); Red Blood Count 4.86 M/mm3 (4.6-6.2); White Blood Count 19.4 K/mm3 (4.4-11.0)
[2023-01-11] MEDS: 0.9% Normal Saline 1,000 ML 999 ML IV (19:06)
[2023-01-11 19:07] VITALS: BP 216/104; PULSE 73; RESP 20; TEMP 34.7; O2SAT 100
[2023-01-11 19:11] LABS: AST(SGOT) 26 U/L (15-37); Alanine Aminotransfer ALT/SGPT 22 U/L (16-61); Albumin, Serum 3.7 g/dL (3.2-5.0); Alkaline Phosphatase 91 U/L (45-117); Anion Gap 10 (5-15); BUN 21 mg/dL (7-18); BUN/Creat Ratio 16.2 RATIO (10-20); Bilirubin, Direct 0.28 mg/dL (0.00-0.30); Calcium,Total 9.1 mg/dL (8.5-10.1); Chloride 108 mmol/L (98-107); EST Glomerular Filtration Rate 56 mL/min (>60); Est Glom Filt Rate - Afr Amer 67 mL/min (>60); Estimated Creatinine Clearance 38.73 ml/min; Globulin 3.2 g/dL (2.2-4.2); Glucose 150 mg/dL (74-106); Potassium 3.5 mmol/L (3.5-5.1); Protein, Total 6.9 g/dL (6.4-8.2); Sodium Level 142 mmol/L (136-145)
--- NOTE | 2023-01-11 19:11 | EDS_ITS ---
HPI HPI - Fall History of Present Illness Chief Complaint: Trauma Informant: family and EMS Narrative Narrative: Patient brought in by EMS after being found down. Family found him lying in his home with decreased level of consciousness. They state that his eye was only minimally swollen at the time and had bright red bleeding so they do not believe he laid on the floor very long. Patient does have a history of dementia and heart disease. He lives alone. 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 Home Medications ibuprofen 200 mg capsule 200 mg PO TID-QID PRN Pain Score 1-306/10/18 [History Last Taken Unknown] betamethasone dipropionate 0.05 % topical cream 1 applic topical BID 06/21/20 [History Last Taken Unknown] memantine 10 mg tablet 10 mg PO BID 06/21/20 [History Last Taken 07/21/20] multivitamin 1 tab PO DAILY 06/21/20 [History Last Taken Unknown] venlafaxine 37.5 mg capsule,extended release 24 hr 37.5 mg PO DAILY 06/21/20 [History Last Taken Unknown] omeprazole 20 mg capsule,delayed release See Rx Instructions .Route .COMPLEX #90 caps 04/05/21 [Rx Last Taken Unknown] aspirin 81 mg tablet,delayed release (Adult Aspirin Regimen) 81 mg PO DAILY 03/13/22 [History Last Taken Unknown] metoprolol succinate 25 mg tablet,extended release 24 hr 25 mg PO QDAY #1 TAB 06/12/22 [Rx Last Taken Unknown] atorvastatin 10 mg tablet See Rx Instructions .Route .COMPLEX #90 tabs 10/15/22 [Rx Last Taken Unknown] clopidogrel 75 mg tablet 75 mg PO DAILY #90 tabs 01/11/23 [Rx Last Taken Unknown] isosorbide mononitrate 30 mg tablet,extended release 24 hr 30 mg PO DAILY #90 tabs 01/11/23 [Rx Last Taken Unknown] Allergy/AdvReac Type Severity Reaction Status Date / Time donepezil [From Aricept] AdvReac HTN Verified 01/11/23 18:46 nitroglycerin AdvReac Unknown Verified 01/11/23 18:46 Family History Sister , Age 49 Diabetes Surgical History H/O hernia repair History of coronary artery stent placement (07/21/20) History of tonsillectomy Social History Smoking Status: Never smoker alcohol intake: never caffeine: Yes Type: coffee Number of servings: 1 ROS ROS ED Review of Systems ROS Unobtainable: due to mental status EXAM Physical Exam Const Vital Signs: 01/11/23 18:33 01/11/23 18:46 01/11/23 19:07 Temperature 98.3 F 94.5 F L Temperature Source Temporal Core Pulse Rate 73 73 Respiratory Rate 22 H 20 H Respiratory Pattern Blood Pressure 219/107 H 216/104 H Blood Pressure Mean 144 141 Pulse Ox 93 100 100 Oxygen Delivery Method Room Air Room Air Mechanical Ventilator Fraction of Inspired Oxygen (FIO2) 01/11/23 18:50 Temperature Temperature Source Pulse Rate Respiratory Rate 20 H Respiratory Pattern Normal Blood Pressure Blood Pressure Mean Pulse Ox Oxygen Delivery Method Fraction of Inspired Oxygen (FIO2) 100 Positive well nourished and well developed Constitutional Narrative: Patient with snoring respirations and unresponsive. General Appearance ED: well developed HEENT HEENT Narrative: Left periorbital edema and ecchymosis. Eyes Eyes Narrative: Pupils pinpoint and fixed. Neck Neck Narrative: C-collar in place. Chest Wall inspection of chest normal and palpation of chest normal Resp Resp Narrative: Snoring respirations noted. Equal breath sounds noted bilaterally. Cardio regular rate and regular rhythm GI GI Narrative: Abdomen is soft. Extremity Extremity Narrative: Patient withdraws both legs to pain. Intermittent spasm noted to the left arm concerning for posturing. Neuro Neuro Narrative: Patient unresponsive to stimulus. His breathing on his own with snoring respirations. MDM MDM MDM Narrative Medical decision making narrative: Discussion had immediate with patient's 2 daughters at bedside. 1 daughter that is present is POA. We discussed need for securing airway and they did agree to intubation. They do not believe their father would want to be treated long-term on a ventilator or have significant aggressive measures taken. We agreed to intubate to protect airway while going to CAT scan for head and neck imaging. Intubation note: Nonrebreather placed for preoxygenation. Patient given 20 mg of etomidate. Vocal cords were observed with glide scope and 7.5 tube placed. Patient was given 2 mg of IV Versed for sedation following ET tube placement. Breath sounds are noted bilaterally and good color changes noted. Lab Data Attestation: I reviewed the patient's lab results. Labs: Laboratory Results - last 24 hr 01/11/23 01/11/23 01/11/23 18:40 18:40 18:40 WBC 19.4 H RBC 4.86 Hgb 15.3 Hct 43.6 MCV 89.7 MCH 31.5 MCHC 35.1 RDW Std Deviation 41.0 RDW Coeff of Jennifer 12.5 Plt Count 203 MPV 10.2 Immature Gran % (Auto) 1.200 H Neut % (Auto) 78.1 H Lymph % (Auto) 10.9 L Whitman % (Auto) 8.5 Eos % (Auto) 0.9 Baso % (Auto) 0.4 Absolute Neuts (auto) 15.1 H Absolute Lymphs (auto) 2.10 Nucleated RBC % 0 Differential Comment SCANNED Diff Path Review March foll PT 14.7 INR 1.2 APTT 37.4 H Sodium 142 Potassium 3.5 Chloride 108 H Carbon Dioxide 24.0 Anion Gap 10 BUN 21 H Creatinine 1.30 Estim Creat Clear Calc 38.73 Est GFR (MDRD) Af Amer 67 Est GFR (MDRD) Non-Af 56 L BUN/Creatinine Ratio 16.2 Glucose 150 H Calcium 9.1 Total Bilirubin 1.00 Direct Bilirubin 0.28 AST 26 ALT 22 Alkaline Phosphatase 91 Total Protein 6.9 Albumin 3.7 Globulin 3.2 Radiography Diagnostic Testing: Clinical Impression(s) from Imaging Studies Brain CT 01/11/23 18:41 IMPRESSION: Large mixed anomaly acute/subacute left subdural hematoma creating midline shift of approximately 7 mm resulting in entrapment and mild dilatation of the right lateral ventricle as well as effacement of the left perimesencephalic cistern consistent with brainstem compression. There also appears to be a small left frontal lobe parenchymal hematoma Electronically Signed: Alex Delgado MD at 19:18 EST , ADDENDUM: 01/11/23 1930 IMPRESSION: Large mixed anomaly acute/subacute left subdural hematoma creating midline shift of approximately 7 mm resulting in entrapment and mild dilatation of the right lateral ventricle as well as effacement of the left perimesencephalic cistern consistent with brainstem compression. There also appears to be a small left frontal lobe parenchymal hematoma N.B. : The above Results were Read Back by Alex Delgado MD to Yvonne Bergman MD, and understanding confirmed on 01/11/2023 19:23:26 (ET). 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 No evidence for acute fracture or subluxation Electronically Signed: Alex Delgado MD at 19:21 EST , Treatment and Re-Evaluation Narrative: CT scan per my interpretation reveals large left subdural hemorrhage with left to right midline shift. This was discussed with POA at bedside. She is speaking with her siblings at this time and feels that they will likely withdraw care and keep him comfortable. Formal CT scan reveals large left subdural with midline shift. There is also compression on the brainstem at this time. CT the C-spine reveals no fracture. Lab work reveals white count of 19.4 with normal hemoglobin. Coags are unrem arkable. Chemistry studies largely unremarkable. Patient's daughter and her siblings all have agreed that they just want the patient kept comfortable. Family is allowed to come in to be with the patient. After some time they agreed that they were ready for the patient to be extubated. Patient was extubated and shortly after patient . Patient was noted to be asystole on the monitor and had no heart tones or breath sounds noted on auscultation. Patient was pronounced at 21:20. Critical Care Time Critical Care Time: Yes Critical care time (excluding procedures): 30-74 minutes (45 minutes), Including time spent:, Discussing w/Patient &/or Family/Dub Room Engineer and Performing Direct Patient Care at Bedside Discharge Plan Triage Chief Complaint: Trauma Other Complaint: Fall ED Provider: Yvonne Bergman Dx/Rx/DC Orders Clinical Impression: Fall, Subdural hemorrhage Prescriptions: No Action ibuprofen 200 mg capsule 200 mg PO TID-QID PRN (Reason: Pain Score 1-3/10) memantine 10 mg tablet 10 mg PO BID venlafaxine 37.5 mg capsule,extended release 24hr 37.5 mg PO DAILY Label Comments: TAKE 1 TABLET BY MOUTH EVERY DAY IN THE MORNING AT THE SAME TIME EACH DAY multivitamin Tablet 1 tab PO DAILY betamethasone dipropionate 0.05 % cream 1 applic TOPICAL BID Label Comments: APPLY TO ANY AREAS OF ITCH ON THE SCALP 1 2 X DAY. metoprolol succinate 25 mg tablet extended release 24 hr 25 mg PO QDAY Qty: 1 3RF omeprazole 20 mg capsule,delayed release(DR/EC) See Rx Instructions .ROUTE .COMPLEX Qty: 90 3RF Dose Instruction: TAKE 1 CAPSULE BY MOUTH EVERY DAY Rx Instructions: TAKE 1 CAPSULE BY MOUTH EVERY DAY aspirin [Adult Aspirin Regimen] 81 mg tablet,delayed release (DR/EC) 81 mg PO DAILY atorvastatin 10 mg tablet See Rx Instructions .ROUTE .COMPLEX Qty: 90 3RF Dose Instruction: TAKE 1 TABLET DAILY Rx Instructions: TAKE 1 TABLET DAILY clopidogrel 75 mg tablet 75 mg PO DAILY Qty: 90 3RF isosorbide mononitrate 30 mg tablet extended release 24 hr 30 mg PO DAILY Qty: 90 3RF Primary Care Provider: Franky Herrmann Referrals: Franky Herrmann MD [Primary Care Provider] - Disposition Disposition:
[2023-01-11 19:15] LABS: International Normalized Ratio 1.2; Prothrombin Time (Protime)PT. 14.7 SECONDS (11.7-14.9)
[2023-01-11 19:16] LABS: Partial Thromboplast Time 37.4 Seconds (24.1-36.2)
[2023-01-11 19:33] LABS: Differential Comment SCANNED
[2023-01-11 19:34] LABS: Differential Indicated SCAN CRITERIA MET
--- NOTE | 2023-01-11 20:29 | ED.RN ---
1900: family member @ pt's bedside and is communicating with local family members and trying to decide what measures they want done.
--- NOTE | 2023-01-11 20:30 | ED.RN ---
1919: family member verbalized that family only wants comfort measures to be done. dr little @ bedside speaking to family at this time. emotional support given at this time.
--- NOTE | 2023-01-11 20:54 | CPS ---
pt terminally extubated pt with RN per Dr Bergman, family present, no complications
[2023-01-11] MEDS: Midazolam 2 MG/2 ML Syringe 1 MG IV (20:57)
--- NOTE | 2023-01-11 22:45 | CM.ED ---
SW Note MD Bergman met with SW and inquired about a bereavement cart for patient's family as he was going to be extubated once more of the family was present. SW to follow up. SW contacted hospital inspection supervisor to request bereavement cart. housekeeping/laundry supervisor to arrange. Patient's daughter informed SW they were ready for patient to be extubated. SW informed MD Bergman. repairer met with SW and explained the housekeeping/laundry supervisor is requesting an autopsy so patient would need to be transferred to the [facility] and they would then coordinate with the home. CHIQUITA met with patient's family and introduced herself and role as [facility] SW. SW inquired about patient's POA. Patient's daughter agreed to speak with SW outside of the room as patient's room was filled with family members and the director call center sales. SW explained patient would need to be taken to [facility] for autopsy and from there they would contact the home. Patient's daughter expressed some frustration but understanding. Patient's daughter explained they would like 30 minutes with the director call center sales and family as he just arrived. SW also provided patient's daughter with Hospice bereavement service information. Patient's daughter was receptive towards resources. No other needs voiced. CHIQUITA updated repairer that family is requesting 30 minutes before he be taken to [facility]. Shalini Rodríguez MSW, MARYBEL
--- NOTE | 2023-01-11 23:20 | ED.RN ---
time of : [address] Bergman
[2023-01-14 14:06] LABS: Pathologist Review Reviewed
== END 2023-01-11 22:57 ==
PROVIDERS: Emergency Provider Emergency Medicine; PCP Family Medicine; Visit Provider Emergency Medicine
DX: S06.5XAA Traumatic subdural hemorrhage with loss of consciousness status unknown, initial encounter (principal); S06.A0XA Traumatic brain compression without herniation, initial encounter; N18.9 Chronic kidney disease, unspecified; I12.9 Hypertensive chronic kidney disease with stage 1 through stage 4 chronic kidney disease, or unspecified chronic kidney disease; E78.5 Hyperlipidemia, unspecified; I25.10 Atherosclerotic heart disease of native coronary artery without angina pectoris; Z60.2 Problems related to living alone; W19.XXXA Unspecified fall, initial encounter
CPT/HCPCS: 31500; 31720; 51702; 70450; 72125; 80048; 80076; 85025; 85610; 85730; 94002; 96361; 96374; 99252; 99285; J7030; A4216; G0463